=== PATIENT | female | born 2000 | race Caucasian/White ===

== ENCOUNTER 2023-01-28 13:45 | Emergency (ER) | payer OTHER ==
[2023-01-28 14:14] VITALS: BP 98/53
[2023-01-28] MEDS ORDERED: LIDOCAINE 2% 10 ML MDV SUBQ ONE (14:32)
[2023-01-28] MEDS ORDERED: LIDOCAINE 1% 2 ML VIAL ONE (14:41)
--- NOTE | 2023-01-28 14:42 | ED Physician Documentation ---
History of Present Illness - Stated complaint Stated Complaint: RING STUCK RT HAND - Chief complaint Chief Complaint: General - History obtained from History obtained from: Patient - History of Present Illness Timing: How many days ago (3) Pain level max: 5 Pain level now: 5 - Additonal information Additional information: R index finger with ring stuck for the past several days, unable remove it at home. The finger is red and swollen. Nothing makes it better or worse. No fevers. No chills. Review of Systems Constitutional: denies: Fever, Chills GI: denies: Vomiting, Diarrhea : denies: Now EGA Skin: denies: Rash Musculoskeletal: denies: Neck pain, Back pain Neurologic: denies: Headache PD PAST MEDICAL HISTORY - Past Medical History Past Medical History: No - Past Surgical History Past Surgical History: No - Allergies Allergies/Adverse Reactions: Allergies Allergy/AdvReac Type Severity Reaction Status Date / Time No Known Drug Allergies Allergy Verified 01/28/23 14:09 PD ED PE NORMAL - Vitals Vital signs reviewed: Yes - General General: Alert and oriented X 3 - HEENT HEENT: Moist mucous membranes - Neck Neck: Supple, no meningeal sign - Derm Derm: Warm and dry - Extremities Extremities: Other (Right index finger is red, swollen with a ring stuck on the proximal phalanx. Neurovascular intact) - Neuro Neuro: Alert and oriented X 3 - Psych Psych: Normal mood, Normal affect Results - Vitals Vitals: Vital Signs - 24 hr 01/28/23 14:07 Temperature 36.3 C L Heart Rate 86 Respiratory 16 Rate Blood Pressure 98/53 L O2 Saturation 100 Oxygen O2 Source Room air PD Medical Decision Making - ED course Complexity details: considered differential, d/w patient ED course: A digital block was performed on the right index finger. Patient tolerated well. 1% lidocaine used. A rubber tourniquet was used to wrap the finger distal to proximal. This was done several times. Eventually the swelling decreased enough that the ring was able to be removed. Patient tolerated well. No complications. Brisk cap refill. Neurovascular intact. Patient counseled regarding signs and symptoms for which I believe and urgent re-evaluation would be necessary. Patient with good understanding of and agreement to plan and is comfortable going home at this time This document was made in part using voice recognition software. While efforts are made to proofread this document, sound alike and grammatical errors may occur. Departure - Departure Disposition: 01 Home, Self Care Clinical Impression: Ring or other jewelry causing external constriction, initial encounter Condition: Good Instructions: ED Foreign Body Soft Tissue Removed Follow-Up: your,doctor as needed [Other] Comments: Please follow-up with your doctor as needed for further care. Please return if you worsen.
== END 2023-01-28 15:58 | disposition home or self-care (01) ==
LOC: ED 13:45
DX: S60.444A External constriction of right ring finger, initial encounter (principal); W49.04XA Ring or other jewelry causing external constriction, initial encounter
CPT/HCPCS: 64450; 99282